=== PATIENT | male | born 1970 | race African-American/Black ===

== ENCOUNTER 2018-01-14 09:03 | Emergency (ER) | payer SELFPAY ==
[~2018-01-14] VITALS: Ht 167.6 cm; Wt 83.6 kg
[2018-01-14] MEDS ORDERED: IBUPROFEN 800 MG TABLET PO ONE (09:45)
[2018-01-14 14:03] VITALS: BP 161/101
== END 2018-01-14 14:08 | disposition home or self-care (01) ==
LOC: EMS 09:04
DX: S83.91XA Sprain of unspecified site of right knee, initial encounter (principal); M54.5 Low back pain; V43.52XA Car driver injured in collision with other type car in traffic accident, initial encounter; Y93.89 Activity, other specified; Y92.89 Other specified places as the place of occurrence of the external cause; Y99.8 Other external cause status
CPT/HCPCS: 72100; 73700; 99284